=== PATIENT | female | born 1955 | race American Indian/Alaskan Native ===

== ENCOUNTER 2017-09-23 14:00 | Outpatient (CLI) | payer MEDICARE, BC ==
--- NOTE | 2017-09-23 16:23 | Mammography Report ---
BONE DEXA:09/23/17 13:15:00 CLINICAL: Postmenopausal. No comparison. TECHNIQUE: Three site bone DEXA performed on an Hologic scanner. FINDINGS: The average BMD of the lumbar spine L1-L3 is 1.027g/cm squared with a T-score of +0.1 and a Z-score of +0.8. The L4 body was excluded since she has had an L4-S1 lumbar fusion with metal at those levels. The average BMD of the right hip is 0.910g/cm squared with a T-score of -0.3 and a Z-score of +0.1. However, the right femoral neck BMD is 0.691g/cm squared with a T score of -1.4 and a Z score of -0.7. The average BMD of the left forearm is 0.589g/cm squared with a T score of +0.5 and a Z score of +1.9. IMPRESSION: 1. WHO classification: Normal with average fracture risk based on lumbar spine and left forearm measurements. 2. WHO classification: Osteopenia with increased fracture risk based on right femoral neck measurements. 3. The FRAX 10 year fracture probability for a major osteoporotic fracture is 3.5%. 4. The FRAX 10 year fracture probability for hip fracture is 0.3%. Note: FRAX version 3.01. Fracture probability calculated for an untreated patient. Fracture probability may be lower if the patient has received treatment. RECOMMENDATION: Clinical correlation and routine screening. DEFINITIONS: BMD = Bone Mineral Density T-score = BMD related to mean peak bone mass of young adult (mean expressed in Standard Deviation) Z-score = Age matched BMD expressed in SD World Health Organization (WHO) Diagnostic Criteria Normal T-score > -1 SD Osteopenia T-score between -1 and -2.4 SD Osteoporosis T-score -2.5 SD or below NOTE: BMD is not the only risk factor for fracture; also consider factors such as the patient's age, risk of falling, previous osteoporotic fracture, family history of osteoporotic fractures, current smoker, and low body weight. All treatment decisions require clinical judgment and consideration of individual patient factors, including patient preferences, comorbidities, previous drug use and risk factors not captured in the FRAX model (e.g. frailty, falls, vitamin D deficiency, increased bone turnover, interval significant decline in BMD). Fracture probability is calculated for an untreated patient. Fracture probability may be lower if the patient has received treatment. Z-scores are not calculated if >80 years of age.
== END 2017-09-23 14:01 | disposition home or self-care (01) ==
LOC: MAMMO 14:00
PROVIDERS: ATTEND Obstetrics & Gynecology Gynecology
DX: M85.88 Other specified disorders of bone density and structure, other site (principal); Z78.0 Asymptomatic menopausal state
CPT/HCPCS: 77080

== ENCOUNTER 2019-01-02 23:24 | Observation (INO) | payer MEDICARE ==
[2019-01-02] MEDS ORDERED: ASPIRIN PO ONE (23:50)
--- NOTE | 2019-01-03 00:29 | XRay Report ---
PROCEDURE: XR CHEST 1V AP TECHNIQUE: AP upright view of the chest was obtained. HISTORY: Chest Pain COMPARISONS: None FINDINGS: Heart size and pulmonary vasculature appear normal. Lungs are clear. No infiltrates masses effusions or pneumothorax visualized. No acute bone abnormalities are seen. IMPRESSION: Negative exam.. This document is electronically signed by Gordon Robles MD., January 03 2019 12:27:09 AM ET
[2019-01-03 00:46] LABS: BUN/Creatinine Ratio 18; Blood Urea Nitrogen 14 mg/dL (7-17); Calcium 9.6 mg/dL (8.4-10.2); Hemolysis Index 7
[2019-01-03 00:52] LABS: Basophils # (Auto) 0.1 K/mm3 (0.0-0.1); Eosinophils # (Auto) 0.2 K/mm3 (0.0-0.4); Eosinophils % (Auto) 5.1 % (0.0-4.3); Hemoglobin 11.2 gm/dl (10.1-14.3); Lymphocytes # (Auto) 2.1 K/mm3 (1.2-5.4); Lymphocytes % (Auto) 46.7 % (13.4-35.0); Mean Corpuscular HGB Conc 34 % (30-34); Mean Corpuscular Volume 89 fl (79-97); Monocytes # (Auto) 0.3 K/mm3 (0.0-0.8); Monocytes % (Auto) 6.2 % (0.0-7.3); Platelet Count 298 K/mm3 (140-440); Red Blood Count 3.73 M/mm3 (3.65-5.03); Red Cell Distribution Width 14.1 % (13.2-15.2)
[2019-01-03] MEDS ORDERED: K-DUR PO ONE (01:47)
[2019-01-03] MEDS ORDERED: ANTIVERT PO ONE (02:04)
[2019-01-03] MEDS ORDERED: NACL 0.9% 500 ML 500 ML IV ONE (02:04)
--- NOTE | 2019-01-03 02:05 | Emergency Department Report ---
ED Neuro Deficit HPI - General Chief Complaint: High BP Stated Complaint: BLOOD PRESSURE AND SHAKING Time Seen by Provider: 01/03/19 01:46 Source: patient, RN notes reviewed Mode of arrival: Wheelchair Limitations: No Limitations - History of Present Illness Initial Comments: Primary care Dr.: Dr. Jeremie Aragon Past medical history: Allergies, hypertension This is a 63-year-old female. The patient is not known to this provider previously. The patient presents to the emergency room with a complaint of sensation of elevated blood pressure, dizziness, nontraumatic thoracic back pain, intermittent bilateral lower extremity weakness, now resolved, no bladder or bowel retention or incontinence, no saddle anesthesia, no DVT or pulmonary embolus risk factors, and sensation of movement, which she describes as occasionally a sensation of her being moved, and occasionally a sensation of movement around her. The symptoms have been intermittent since approximately 5:30 PM yesterday. The patient denies tinnitus, denies change in auditory acuity, and also denies change in vision. She denies viral syndrome. She endorsed a throbbing burning achy and squeezing headache. This is bitemporal and frontal. It is not sudden in a thunderclap nature. It did not reach maximal intensity within an hour. The back pain is mid thoracic, it is achy, throbbing, and similar to prior back pain, although she reports it is in a different location than typically. This pain does not radiate anywhere. -: Gradual Location: other Presenting Symptoms: Absent: Weak/Paralyzed One Side, Sudden, Severe Headache, Blurred/Loss of Vision, Facial Droop/Numbness, Unable to Speak Clearly, Altered Mental Status History of same: No Place: home Severity: moderate Quality: other Improves With: other Worsens With: other - Related Data Home Medications: Home Medications Medication Instructions Recorded Confirmed Last Taken Loratadine 10 mg PO DAILY 01/03/19 01/03/19 01/02/19 Montelukast [Singulair] 10 mg PO QPM 01/03/19 01/03/19 01/02/19 Nebivolol HCl [Bystolic] 5 mg PO DAILY 01/03/19 01/03/19 01/02/19 hydroCHLOROthiazide [Hctz] 12.5 mg PO QDAY 01/03/19 01/03/19 01/02/19 Allergies/Adverse Reactions: Allergies Allergy/AdvReac Type Severity Reaction Status Date / Time codeine AdvReac Shortness Verified 01/02/19 23:31 of Breath ED Review of Systems ROS: Stated complaint: BLOOD PRESSURE AND SHAKING Other details as noted in HPI Constitutional: malaise Eyes: denies: eye discharge ENT: denies: epistaxis Respiratory: denies: cough Cardiovascular: denies: chest pain Gastrointestinal: denies: abdominal pain Genitourinary: denies: dysuria Musculoskeletal: back pain Skin: denies: lesions Neurological: headache, weakness Psychiatric: anxiety ED Past Medical Hx - Past Medical History Previous Medical History?: Yes Hx Hypertension: Yes Hx Arthritis: Yes - Surgical History Past Surgical History?: Yes Hx Pacemaker: Yes Additional Surgical History: Left hip, Back and Neck Surgery - Social History Smoking Status: Former Smoker Substance Use Type: None - Medications Home Medications: Home Medications Medication Instructions Recorded Confirmed Last Taken Type Loratadine 10 mg PO DAILY 01/03/19 01/03/19 01/02/19 History Montelukast [Singulair] 10 mg PO QPM 01/03/19 01/03/19 01/02/19 History Nebivolol HCl [Bystolic] 5 mg PO DAILY 01/03/19 01/03/19 01/02/19 History hydroCHLOROthiazide [Hctz] 12.5 mg PO QDAY 01/03/19 01/03/19 01/02/19 History ED Neuro Physical Exam - General Limitations: No Limitations General appearance: alert, anxious Suspected Stroke: No - Head Head exam: Present: atraumatic, normocephalic - Eye Eye exam: Present: normal appearance, PERRL, EOMI, other (visual acuity intact to finger counting, color perception, reading at a close distance). Absent: nystagmus - ENT ENT exam: Present: normal exam, mucous membranes dry, mucous membranes moist, TM's normal bilaterally, normal external ear exam, other (there is no mastoid tenderness) - Neck Neck exam: Present: normal inspection, full ROM. Absent: tenderness, meningismus - Respiratory Respiratory exam: Present: normal lung sounds bilaterally. Absent: respiratory distress - Cardiovascular Cardiovascular Exam: Present: regular rate, normal rhythm, normal heart sounds. Absent: bradycardia, tachycardia, irregular rhythm, systolic murmur, diastolic murmur, rubs, gallop - GI/Abdominal GI/Abdominal exam: Present: soft. Absent: distended, tenderness, guarding, rebound, rigid, pulsatile mass - Extremities Exam Extremities exam: Present: normal inspection, full ROM, pedal edema, other (2+ pulses noted in the bilateral upper, lower extremities. Compartments soft. No long bony tenderness. The pelvis is stable.). Absent: calf tenderness - Back Exam Back exam: Present: normal inspection, full ROM. Absent: tenderness, CVA tenderness (R), paraspinal tenderness, vertebral tenderness - Neurological Exam Neurological exam: Present: alert, oriented X3, normal gait, other (Extraocular movements intact. Tongue midline. No facial droop. Facial sensation intact to light touch in the V1, V2, V3 distribution bilaterally. 5 and 5 strength in 4 extremities.. Sensation is intact to light touch in 4 extremities.). Absent: motor sensory deficit (bilateral upper extremity intention tremor is noted. The patient reports that this is new.) - NIHSS Assessment Interval: Baseline 1a. Level of Consciousness: alert/keenly responsive 1b. LOC Questions: answers both correctly 1c. LOC Commands: performs tasks correctly 2. Best Gaze: normal 3. Visual: no visual loss 4. Facial Palsy: normal symmetrical movement 5b. Motor Arm Right: no drift 5a. Motor Arm Left: no drift 6a. Motor Leg Left: no drift 6b. Motor Leg Right: no drift 7. Limb Ataxia: present 2 limbs (bilateral upper extremity tremor noted, has difficulty touching finger to nose.) 8. Sensory: normal 9. Best Language: no aphasia 10. Dysarthria: normal 11. Extinction/Inattention: no abnormality Total Score: 2 Stroke Severity: Minor Stroke - Psychiatric Psychiatric exam: Present: anxious - Skin Skin exam: Present: warm, dry, intact, normal color. Absent: rash ED Course Vital Signs 01/02/19 01/03/19 01/03/19 23:30 00:48 04:11 Temperature 98.2 F Pulse Rate 95 H 77 60 Respiratory 18 17 19 Rate Blood Pressure 192/101 Blood Pressure 151/92 148/82 [Right] O2 Sat by Pulse 99 98 98 Oximetry - Reevaluation(s) Reevaluation #1: 01/03/19 02:47 Differential diagnosis, including but not limited to: Hypertensive urgency, posterior reversible encephalopathy, peripheral vertigo, central vertigo, stroke, TIA, pneumonia, urinary tract infection, acute coronary syndrome, electrolyte derangement, Assessment and plan: 63-year-old female with numerous nonspecific complaints. Objectively speaking, the patient is afebrile with reassuring vital signs with the exception of hypertension. Presents more than 4.5 hours after reported symptom onset, is therefore not a TPA candidate, in addition, only findings on neurologic examination included bilateral upper extremity tremors, which she rep orts are new, and may be contributing to mild degree of limb ataxia. She walks with a steady gait. She is not tachycardic, she is not hypoxic. Elevated blood pressure is reviewed and appreciated, we will allow for permissive hypertension at this point time. We will treat her symptoms. Stroke neurology consultation is obtained, patient interviewed with myself by Dr. Sam Fishman, who agrees the patient does not merit tPA criteria, but advises acquisition of angiogram to exclude large vessel occlusion; we both clinically feel that large vessel occlusion is quite unlikely. We'll treat the patient with meclizine and IV fluids, obtain CT scans, and admitted to the medical service once initial diagnostics have been resulted 01/03/19 02:47 01/03/19 02:49 01/03/19 04:[address] angiogram of the head and neck is negative for acute disease. The case is presented to the Hospital physician, Dr. Suzie Hoyos, who accepts the patient to the medical service for further evaluation - Lab Data Result diagrams: 01/03/19 00:05 01/03/19 00:05 Lab Results 01/03/19 01/03/19 01/03/19 Range/Units 00:05 00:05 00:05 WBC 4.6 (4.5-11.0) K/mm3 RBC 3.73 (3.65-5.03) M/mm3 Hgb 11.2 (10.1-14.3) gm/dl Hct 33.0 (30.3-42.9) % MCV 89 (79-97) fl MCH 30 (28-32) pg MCHC 34 (30-34) % RDW 14.1 (13.2-15.2) % Plt Count 298 (140-440) K/mm3 Lymph % (Auto) 46.7 H (13.4-35.0) % Candler % (Auto) 6.2 (0.0-7.3) % Eos % (Auto) 5.1 H (0.0-4.3) % Baso % (Auto) Staff Training And Development Manager Lymph # 2.1 (1.2-5.4) K/mm3 Candler # 0.3 (0.0-0.8) K/mm3 Eos # 0.2 (0.0-0.4) K/mm3 Baso # 0.1 (0.0-0.1) K/mm3 Seg Neutrophils % 40.4 (40.0-70.0) % Seg Neutrophils # 1.8 (1.8-7.7) K/mm3 Sodium 139 (137-145) mmol/L Potassium 3.3 L (3.6-5.0) mmol/L Chloride 99.6 (98-107) mmol/L Carbon Dioxide 25 (22-30) mmol/L Anion Gap 18 mmol/L BUN 14 (7-17) mg/dL Creatinine 0.8 (0.7-1.2) mg/dL Estimated GFR > 60 ml/min BUN/Creatinine Ratio 18 % Glucose 109 H (65-100) mg/dL Calcium 9.6 (8.4-10.2) mg/dL Magnesium 1.90 (1.7-2.3) mg/dL Total Creatine Kinase 144 H (30-135) units/L Troponin T < 0.010 (0.00-0.029) ng/mL 01/03/19 Range/Units 03:03 WBC (4.5-11.0) K/mm3 RBC (3.65-5.03) M/mm3 Hgb (10.1-14.3) gm/dl Hct (30.3-42.9) % MCV (79-97) fl MCH (28-32) pg MCHC (30-34) % RDW (13.2-15.2) % Plt Count (140-440) K/mm3 Lymph % (Auto) (13.4-35.0) % Cand[place] % (Auto) (0.0-7.3) % Eos % (Auto) (0.0-4.3) % Baso % (Auto) Lymph # (1.2-5.4) K/mm3 Candler # (0.0-0.8) K/mm3 Eos # (0.0-0.4) K/mm3 Baso # (0.0-0.1) K/mm3 Seg Neutrophils % (40.0-70.0) % Seg Neutrophils # (1.8-7.7) K/mm3 Sodium (137-145) mmol/L Potassium (3.6-5.0) mmol/L Chloride (98-107) mmol/L Carbon Dioxide (22-30) mmol/L Anion Gap mmol/L BUN (7-17) mg/dL Creatinine (0.7-1.2) mg/dL Estimated GFR ml/min BUN/Creatinine Ratio % Glucose (65-100) mg/dL Calcium (8.4-10.2) mg/dL Magnesium (1.7-2.3) mg/dL Total Creatine Kinase (30-135) units/L Troponin T < 0.010 (0.00-0.029) ng/mL - EKG Data -: EKG Interpreted by Me EKG shows normal: sinus rhythm Rate: normal 01/03/19 02:49 This is a normal sinus rhythm, 75 bpm, left axis deviation, left anterior fascicular block, motion artifact, , low voltage, this is an abnormal EKG, this is not consistent with ST elevation myocardial infarction. - Radiology Data Radiology results: pending - Core Measures Measure Exclusions: not indicated - Thrombolytic Inclusion/Exclusion Thrombolytic Exclusion Criteria: Symptom Onset > 3 Hours Critical care attestation.: If time is entered above; I have spent that time in minutes in the direct care of this critically ill patient, excluding procedure time. ED Disposition Clinical Impression: Dizziness, Elevated blood pressure reading Disposition: OP ADMIT IP TO THIS HOSP Is pt being admited?: Yes Does the pt Need Aspirin: Yes Condition: Good Referrals: PRIMARY CARE, [Primary Care Provider] - 3-5 Days
--- NOTE | 2019-01-03 03:54 | Cat Scan Report ---
PROCEDURE: CT ANGIO HEAD TECHNIQUE: Computerized tomographic angiography of the head was performed after the IV injection of iodinated nonionic contrast including image processing. The image data was postprocessed using 2-dim ensional multiplanar reformatted (MPR) and 3-dimensional (MIP and/or volume rendered) techniques. CT DOSE LENGTH PRODUCT: mGycm HISTORY: balance off temor cva COMPARISONS: None . FINDINGS: Cerebrum: No evidence of hemorrhage, acute ischemia or mass . Cerebellum: No evidence of hemorrhage, acute ischemia or mass . Subarachnoid spaces and ventricles: Normal . Intracranial vessels: Carotid siphon: Normal . Anterior cerebral: Normal . Middle cerebral: Normal . Posterior cerebral: Normal . Vertebral arteries including basilar: Normal . Aneurysms: None . Dural sinuses: Normal. IMPRESSION: Normal Examination . This document is electronically signed by Cam Gaspar MD., January 03 2019 03:52:07 AM ET
--- NOTE | 2019-01-03 03:56 | Cat Scan Report ---
PROCEDURE: CT ANGIO NECK TECHNIQUE: Computerized tomographic angiography of the neck was performed after the IV injection of iodinated nonionic contrast including image processing. The image data was postprocessed using 2-dime nsional multiplanar reformatted (MPR) and 3-dimensional (MIP and/or volume rendered) techniques. CT DOSE LENGTH PRODUCT: 2092.5 mGycm HISTORY: balance off temor cva COMPARISONS: None . Note: Assessment of carotid artery stenosis is based on measurement of the distal internal carotid a rtery diameter as the denominator for stenosis calculations and the [place] Symptomatic Caroti d Endarterectomy Trial (NASCET) stenosis criteria. FINDINGS: Sinuses: Normal . Non vascular cervical structures: No significant abnormality . Aortic arch: Normal . Right carotid artery: Normal . Left carotid artery: Normal . Vertebral arteries: Normal . IMPRESSION: Normal Examination . This document is electronically signed by Cam Gaspar MD., January 03 2019 03:54:32 AM ET
--- NOTE | 2019-01-03 03:59 | Cat Scan Report ---
PROCEDURE: CT HEAD/BRAIN WO CON TECHNIQUE: Computerized tomography of the head was performed without contrast material. CT DOSE LENGTH PRODUCT: 915.1 mGycm HISTORY: balance off temor cva COMPARISONS: None . FINDINGS: Skull and scalp: Normal . Paranasal sinuses: Normal . Ventricles and subarachnoid spaces: Normal . Cerebrum: No evidence of hemorrhage, acute infarction or mass . Cerebellum and brainstem: No evidence of hemorrhage, acute infarction or mass . Vasculature: Normal . IMPRESSION: Normal Examination . This document is electronically signed by Cam Gaspar MD., January 03 2019 03:57:26 AM ET
--- NOTE | 2019-01-03 04:28 | Emergency Department Report ---
ED Neuro Deficit HPI - General Chief Complaint: High BP Stated Complaint: BLOOD PRESSURE AND SHAKING Time Seen by Provider: 01/03/19 01:46 Source: patient, RN notes reviewed Mode of arrival: Wheelchair Limitations: No Limitations - History of Present Illness Initial Comments: [facility] Impression: R/O bilateral MICHAEL stroke for lower extremity weakness Recommendations: #1. No TPA because last known normal was the night before. #2. Both legs are weak obtain CTA H/N #3. If No LVO, will admit for IV fluids, Telemetry, Swallow Study, DVT prophy #4. Ok to give ASA #5. Consider EEG if negative #6. Will follow CC: History of Present Illness: The patient started to have new onset of hand shaking, she started to have this start today at 4-5:30 pm, At 4to 5:30 pm,the patient drove home, and she was sha michael with blood pressure that went up at 4:00 - 5:30 pm, and got up to go to the bathroomand was dizzy and started to shake and had pain in the back. She statesthat she had a dizzy sensation, and new onset bilateral upper location of pain. SHe has a headache, and Diagnostic Testing: CT head is negative. Vital Signs: Exam: Mental Status: Awake, alert, oriented Naming: Intact Repetition: Intact Speech: fluent Cranial Nerves: Pupils: Equal round and reactive to light Extraocular movements: Intact in all cardinal gaze Ptosis: Absent Visual roach: Intact to finger counting Facial sensation: Intact to pin and light touch Facial movements: Intact and symmetric Motor Exam: No drift Tremor/Abnormal Movements: Resting tremor: Absent Intention tremor: Absent Postural tremor: Absent Sensory Exam: Light touch: Intact Pinprick: Intact Coordination: Finger to nose: Intact Heel to jaime: Intact Medical Decision Making: - Extensive number of diagnosis or management options are considered above. - Extensive amount of complex data reviewed. - High risk of complication and/or morbidity or mortality are associated with differential diagnostic considerations above. - There may be uncertain outcome and increased probability of prolonged functional impairment or high probability of severe prolonged functional impairment associated with some of these differential diagnosis. Medical Data Reviewed: 1.Data reviewed include clinical labs, radiology, Medical Tests; 2.Tests r esults discussed w/performing or interpreting physician; 3.Obtaining/reviewing old medical records; 4.Obtaining case history from another source; 5.Independent review of image, tracing or specimen. Patient was informed the Neurology Consult would happen via telehealth (remote video) and consented to receiving care in this manner. Location: other History of same: No Place: home Severity: moderate Quality: other Improves With: other Worsens With: other - Related Data Home Medications: Home Medications Medication Instructions Recorded Confirmed Last Taken Loratadine 10 mg PO DAILY 01/03/19 01/03/19 01/02/19 Montelukast [Singulair] 10 mg PO QPM 01/03/19 01/03/19 01/02/19 Nebivolol HCl [Bystolic] 5 mg PO DAILY 01/03/19 01/03/19 01/02/19 hydroCHLOROthiazide [Hctz] 12.5 mg PO QDAY 01/03/19 01/03/19 01/02/19 Allergies/Adverse Reactions: Allergies Allergy/AdvReac Type Severity Reaction Status Date / Time codeine AdvReac Shortness Verified 01/02/19 23:31 of Breath ED Review of Systems ROS: Stated complaint: BLOOD PRESSURE AND SHAKING Other details as noted in HPI Constitutional: malaise Eyes: denies: eye discharge ENT: denies: epistaxis Respiratory: denies: cough Cardiovascular: denies: chest pain Gastrointestinal: denies: abdominal pain Genitourinary: denies: dysuria Musculoskeletal: back pain Skin: denies: lesions Neurological: headache, weakness Psychiatric: anxiety ED Past Medical Hx - Past Medical History Previous Medical History?: Yes Hx Hypertension: Yes Hx Arthritis: Yes - Surgical History Past Surgical History?: Yes Hx Pacemaker: Yes Additional Surgical History: Left hip, Back and Neck Surgery - Social History Smoking Status: Former Smoker Substance Use Type: None - Medications Home Medications: Home Medications Medication Instructions Recorded Confirmed Last Taken Type Loratadine 10 mg PO DAILY 01/03/19 01/03/19 01/02/19 History Montelukast [Singulair] 10 mg PO QPM 01/03/19 01/03/19 01/02/19 History Nebivolol HCl [Bystolic] 5 mg PO DAILY 01/03/19 01/03/19 01/02/19 History hydroCHLOROthiazide [Hctz] 12.5 mg PO QDAY 01/03/19 01/03/19 01/02/19 History ED Neuro Physical Exam - General Limitations: No Limitations General appearance: alert, anxious ED Course Vital Signs 01/02/19 01/03/19 01/03/19 23:30 00:48 04:11 Temperature 98.2 F Pulse Rate 95 H 77 60 Respiratory 18 17 19 Rate Blood Pressure 192/101 Blood Pressure 151/92 148/82 [Right] O2 Sat by Pulse 99 98 98 Oximetry - Lab Data Result diagrams: 01/03/19 00:05 01/03/19 00:05 Lab Results 01/03/19 01/03/19 01/03/19 Range/Units 00:05 00:05 00:05 WBC 4.6 (4.5-11.0) K/mm3 RBC 3.73 (3.65-5.03) M/mm3 Hgb 11.2 (10.1-14.3) gm/dl Hct 33.0 (30.3-42.9) % MCV 89 (79-97) fl MCH 30 (28-32) pg MCHC 34 (30-34) % RDW 14.1 (13.2-15.2) % Plt Count 298 (140-440) K/mm3 Lymph % (Auto) 46.7 H (13.4-35.0) % Kem[place] % (Auto) 6.2 (0.0-7.3) % Eos % (Auto) 5.1 H (0.0-4.3) % Baso % (Auto) Item Processing Clerk Lymph # 2.1 (1.2-5.4) K/mm3 Kem[place] # 0.3 (0.0-0.8) K/mm3 Eos # 0.2 (0.0-0.4) K/mm3 Baso # 0.1 (0.0-0.1) K/mm3 Seg Neutrophils % 40.4 (40.0-70.0) % Seg Neutrophils # 1.8 (1.8-7.7) K/mm3 Sodium 139 (137-145) mmol/L Potassium 3.3 L (3.6-5.0) mmol/L Chloride 99.6 (98-107) mmol/L Carbon Dioxide 25 (22-30) mmol/L Anion Gap 18 mmol/L BUN 14 (7-17) mg/dL Creatinine 0.8 (0.7-1.2) mg/dL Estimated GFR > 60 ml/min BUN/Creatinine Ratio 18 % Glucose 109 H (65-100) mg/dL Calcium 9.6 (8.4-10.2) mg/dL Magnesium 1.90 (1.7-2.3) mg/dL Total Creatine Kinase 144 H (30-135) units/L Troponin T < 0.010 (0.00-0.029) ng/mL 01/03/19 Range/Units 03:03 WBC (4.5-11.0) K/mm3 RBC (3.65-5.03) M/mm3 Hgb (10.1-14.3) gm/dl Hct (30.3-42.9) % MCV (79-97) fl MCH (28-32) pg MCHC (30-34) % RDW (13.2-15.2) % Plt Count (140-440) K/mm3 Lymph % (Auto) (13.4-35.0) % Kem[place] % (Auto) (0.0-7.3) % Eos % (Auto) (0.0-4.3) % Baso % (Auto) Lymph # (1.2-5.4) K/mm3 Kem[place] # (0.0-0.8) K/mm3 Eos # (0.0-0.4) K/mm3 Baso # (0.0-0.1) K/mm3 Seg Neutrophils % (40.0-70.0) % Seg Neutrophils # (1.8-7.7) K/mm3 Sodium (137-145) mmol/L Potassium (3.6-5.0) mmol/L Chloride (98-107) mmol/L Carbon Dioxide (22-30) mmol/L Anion Gap mmol/L BUN (7-17) mg/dL Creatinine (0.7-1.2) mg/dL Estimated GFR ml/min BUN/Creatinine Ratio % Glucose (65-100) mg/dL Calcium (8.4-10.2) mg/dL Magnesium (1.7-2.3) mg/dL Total Creatine Kinase (30-135) units/L Troponin T < 0.010 (0.00-0.029) ng/mL Critical care attestation.: If time is entered above; I have spent that time in minutes in the direct care of this critically ill patient, excluding procedure time. ED Disposition Condition: Stable Referrals: PRIMARY CARE, [Primary Care Provider] - 3-5 Days
[2019-01-03] MEDS ORDERED: BABY ASPIRIN PO ONE (04:49)
[2019-01-03] MEDS ORDERED: ZOFRAN IV PRN (05:11)
[2019-01-03] MEDS ORDERED: TYLENOL PO PRN (05:12)
[2019-01-03] MEDS ORDERED: ANTIVERT PO PRN (05:22)
[2019-01-03 07:48] LABS: BUN/Creatinine Ratio 16; Blood Urea Nitrogen 11 mg/dL (7-17); Calcium 9.8 mg/dL (8.4-10.2); Hemolysis Index 10
--- NOTE | 2019-01-03 08:24 | Magnetic Resonance Report ---
MRI OF THE BRAIN WITHOUT CONTRAST: HISTORY: Ataxia, dizziness PROCEDURE: Multiplanar, multisequence MR imaging of the brain without IV contrast was performed. Comparison: CT head without contrast, CTA head and neck performed 01/03/19. FINDINGS: The brain parenchyma signal intensity and its mcbride white interface are within normal limits on all sequences. No evidence for acute ischemia, hemorrhage or mass. No chronic infarct or extra-axial fluid collection. The midline structures are central. The basal cisterns are patent. Normal ventricular size. The orbital cavities and sella turcica demonstrate no abnormality. The visualized paranasal sinuses and mastoid air cells are well aerated. IMPRESSION: Unremarkable non-enhanced MRI of the brain.
--- NOTE | 2019-01-03 08:30 | History and Physical Report ---
CHIEF COMPLAINT: Elevated blood pressure. OTHER COMPLAINT: Include dizziness and unsteady gait. HISTORY OF PRESENTING ILLNESS: The patient is a 63-year-old female, who presented to the Emergency Room with complaint of dizziness, elevated blood pressure, back pain, unsteady gait. The patient denied history of chest pain. Denied history of shortness of breath, also complained about headache and tremors. The patient denied history of tinnitus and admitted to having body tremor. There is no history of weakness of the extremities. The patient denies history of fever or chills and presented for evaluation. PAST MEDICAL HISTORY: Pertinent for hypertension, arthritis. PAST SURGICAL HISTORY: Pertinent for pacemaker placement, left hip surgery, back and neck surgery. FAMILY HISTORY: Family history is noncontributory. SOCIAL HISTORY: The patient is a former cigarette smoker, does not smoke currently, does not drink alcohol and does not use illicit drug. MEDICATIONS: The patient is on loratadine 10 mg by mouth daily, montelukast 10 mg by mouth daily. Also the patient is on Bystolic (nebivolol hydrochloride) 5 mg by mouth daily. The patient is also on hydrochlorothiazide 12.5 mg daily. ALLERGIES: THE PATIENT IS ALLERGIC TO CODEINE. REVIEW OF SYSTEMS: CONSTITUTIONAL: There are no fever, no chills, no diaphoresis. HEENT: There is headache, but no sore throat. CARDIOVASCULAR SYSTEM: There is no chest pain or orthopnea. RESPIRATORY SYSTEM: There is no shortness of breath or cough. GASTROINTESTINAL SYSTEM: There is no nausea, no vomiting, no abdominal pain, diarrhea or constipation. NEUROLOGICAL SYSTEM: Dizziness present. Unsteady gait present. Tremors present. There is no change in mental status. There is no weakness of any part of body. Also there is no loss of sensory function. MUSCULOSKELETAL SYSTEM: There is no joint pain or swelling. DERMATOLOGICAL SYSTEM: There is no skin rash or itching. GENITOURINARY SYSTEM: There is no dysuria, hematuria or flank pain. Rest of system review is normal. PHYSICAL EXAMINATION: GENERAL: At the time of exam, the patient was found to be alert, oriented x 3 and not in acute distress. VITAL SIGNS: At the initial time of presentation show temperature of 98.2 degrees Fahrenheit, pulse of 95, respiration 18. Blood pressure 192/101, blood pressure further went down to 148/82 after about 5 hours. O2 sat of 99% on room air. HEENT: Showed pupils to be equal, round, reactive to light and accommodating. Extraocular muscles are intact. NECK: Neck is supple with no JVD or carotid bruit. CARDIOVASCULAR SYSTEM: Show normal first and second heart sounds with no gallops or murmurs. RESPIRATORY SYSTEM: Show good air entry on both sides of the lungs with no abnormal breath sounds. GASTROINTESTINAL SYSTEM: Show abdomen to be full, soft, nontender with no organomegaly or rigidity. NEUROLOGIC: Neuro exam shows no focal deficit. MUSCULOSKELETAL SYSTEM: Show no joint swelling or tenderness. DERMATOLOGICAL SYSTEM: Showing no skin rash. GENITOURINARY SYSTEM: Showing no costovertebral angle tenderness. PERTINENT LABORATORY DATA AND IMAGING STUDIES: The patient had the following lab test done. CBC showed normal white count, normal hemoglobin and normal hematocrit with CBC differential showing elevated lymphocyte count of 46.7% and elevated eosinophil count of 5.1%. The patient's chemistry showed low potassium level of 3.3 with rest of chemistry being unremarkable. Imaging studies; the patient has had chest x-ray done that came back unremarkable. The patient had a CT of the head without contrast done, came back normal. Also the patient had CT angiogram of the head and CT angiogram of the neck that all came back normal. DIAGNOSES: 1. Unsteady gait. 2. Dizziness. 3. Hypokalemia. PLAN OF CARE: 1. The patient will be admitted to telemetry. 2. The patient will have MRI of the brain without contrast done this morning. 3. The patient will have bilateral carotid Doppler done this morning as well as 2D echo done this morning. 4. The patient will have Neurology consult with Dr. Burak Herzog and will also have physical therapy consult this morning. 5. The patient will be on aspirin 325 mg by mouth daily and will be on IV Zofran 4 mg every 8 hours as needed for nausea and vomiting. 6. The patient will be on home medications as shown in the medication reconciliation section. 7. The patient will be on meclizine 25 mg by mouth every 8 hours as needed for vertigo. 8. She will be on Tylenol 650 mg by mouth every 4 hours for fever, headache and daily aspirin 325 mg by mouth. 9. The patient will have basic metabolic panel done this morning having potassium chloride by mouth with a dose of 40 mEq. 10. The patient's diet will be 2 g sodium diet. [facility]# [id number] [facility]/SADIE ALLEN
[2019-01-03] MEDS ORDERED: ASPIRIN ONE (09:42)
[2019-01-03] MEDS ORDERED: LOPRESSOR ONE (09:43)
[2019-01-03] MEDS ORDERED: HCTZ ONE (09:43)
[2019-01-03] MEDS ORDERED: CLARITIN ONE (09:44)
[2019-01-03 09:54] VITALS: BP 134/85
[2019-01-03] MEDS ORDERED: NEBIVOLOL HCL 5 MG PO SCH (10:00)
[2019-01-03] MEDS ORDERED: ASPIRIN PO SCH (10:00)
[2019-01-03] MEDS ORDERED: TOPROL XL PO SCH (10:00)
[2019-01-03] MEDS ORDERED: CLARITIN PO SCH (10:00)
[2019-01-03] MEDS ORDERED: HCTZ PO SCH (10:00)
--- NOTE | 2019-01-03 10:10 | Discharge Summary ---
Providers - Providers Date of Admission: 01/03/19 05:00 Date of discharge: 01/03/19 Attending physician: REBECA NELSON MD 01/03/19 02:04 Consult to Physician [CONS] Urgent Comment: Consulting Provider: GARIMA GOODMAN Physician Instructions: Reason For Exam: balance augustien 01/03/19 05:09 Consult to Physician [CONS] Routine Comment: Consulting Provider: TUSHAR BELL Physician Instructions: Reason For Exam: ATAXIA AND DIZZYNESS 01/03/19 05:11 Physical Therapy Evaluation and Treat [CONS] Routine Comment: Reason For Exam: ATAXIA Primary care physician: [employer]LY[employer] Hospitalization Reason for admission: hypertension and dizziness Hospital course: 68-year-old -[place] female with known history of hypertension and arthritis presented to the ED with complaints of dizziness, elevated blood pressure, back pain, unsteady gait. At the time of admission patient blood pressure was 192/101. She was treated with by mouth metoprolol 50 mg daily HCTZ 12.5mg daily. Her blood pressure returned to normal limits 123/80. As patient's blood pressure improved her gait is steady and she no longer complains of dizziness.She was found to be hypokalemic with potassium of 3.3. Her potassium was orally repleted and rechecked and it is now 4.4. Since MRI brain, CT angiogram, and carotid Doppler are all negative patient is being discharged home with adjustment in antihypertensive medications. Discharge planning was discussed with both patient and her daughter. They are both in agreement and verbalized understanding. Following diagnostic studies were done: MRI brain: Unremarkable non-enhanced MRI of the brain CTA and CT head both reveal: Normal Examination Bilateral carotid Doppler unrevealing for evidence of any hemodynamically significant stenosis EKG showed sinus rhythm at 75 bpm, left ventricular hypertrophy Diagnosis Hypertensive urgency History of hypertension Hypokalemia Unsteady gait Dizziness Disposition: DC-01 TO HOME OR SELFCARE Time spent for discharge: 33 minutes Core Measure Documentation - Palliative Care Palliative Care/ Comfort Measures: Not Applicable - Core Measures Any of the following diagnoses?: none - VTE Discharge Requirements Deep Vein Thrombosis/Pulmonary Embolism Present on Admission: No Contraindication No Overlap Therapy order at DC: Not Indicated Exam - Constitutional Vitals: Temp Pulse Resp BP Pulse Ox 98.3 F 75 15 134/85 100 01/03/19 07:44 01/03/19 09:53 01/03/19 07:44 01/03/19 09:53 01/03/19 07:44 General appearance: Present: no acute distress, well-nourished - EENT Eyes: Present: PERRL, EOM intact ENT: hearing intact, clear oral mucosa, dentition normal - Neck Neck: Present: supple, normal ROM - Respiratory Respiratory effort: normal Respiratory: bilateral: CTA - Cardiovascular Heart rate: 75 (bpm) Rhythm: regular Heart Sounds: Present: S1 & S2. Absent: rub, click - Extremities Extremities: pulses intact, pulses symmetrical, No edema - Abdominal General gastrointestinal: Present: soft, non-tender, normal bowel sounds Female genitourinary: Present: deferred - Rectal Rectal Exam: deferred - Integumentary Integumentary: Present: clear, warm, dry - Musculoskeletal Musculoskeletal: strength equal bilaterally - Psychiatric Psychiatric: appropriate mood/affect, intact judgment & insight, cooperative - Neurologic Neurologic: CNII-XII intact, moves all extremities - Allied Health Allied health notes reviewed: nursing Plan Activity: advance as tolerated Diet: low fat, low salt Follow up with: PRIMARY CARE, [Primary Care Provider] - 3-5 Days Forms: Accompanied Note Prescriptions: Aspirin [Aspirin TAB] 325 mg PO QDAY 30 Days #30 tablet Metoprolol Xl [Metoprolol SUCCINATE ER TAB] 50 mg PO QDAY 30 Days #30 tablet
--- NOTE | 2019-01-03 14:22 | Vascular Lab Report ---
PROCEDURE: VL CAROTID DUPLEX BILAT TECHNIQUE: Carotid duplex Doppler ultrasound. Grayscale, color flow and spectral waveform images wer e obtained. HISTORY: ATAXIA AND DIZZYNESS COMPARISON: None FINDINGS: There is a mild to moderate degree of atherosclerotic plaque bilaterally. Bilaterally there is no elevation in flow velocity. ICA/CCA velocity ratios are normal. Findings srinath nicolas stenoses of less than 50%. Vertebral artery flow is antegrade bilaterally. IMPRESSION: No evidence for any hemodynamically significant stenosis. This document is electronically signed by Gayle Enamorado MD., January 03 2019 02:19:57 PM ET
[2019-01-03] MEDS ORDERED: SINGULAIR PO SCH (18:00)
== END 2019-01-03 10:38 | disposition home or self-care (01) ==
LOC: ED 23:24 → 4A 01-03 05:00
PROVIDERS: ADMIT Internal Medicine; ATTEND Internal Medicine
DX: R42 Dizziness and giddiness (principal); R26.81 Unsteadiness on feet; E87.6 Hypokalemia; I10 Essential (primary) hypertension; M19.90 Unspecified osteoarthritis, unspecified site; Z95.0 Presence of cardiac pacemaker; Z98.890 Other specified postprocedural states; Z87.891 Personal history of nicotine dependence; Z88.5 Allergy status to narcotic agent
CPT/HCPCS: 36415; 70450; 70496; 70498; 70551; 71045; 80048; 82550; 83735; 84484; 85025; 93005; 93010; 93880; 99284; G0378; J7040; Q9967

== ENCOUNTER 2019-07-19 06:29 | Observation (INO) | payer MEDICARE ==
--- NOTE | 2019-07-19 06:50 | Emergency Department Report ---
ED Dizziness HPI - General Stated Complaint: DIZZINESS Time Seen by Provider: 07/19/19 06:46 Source: patient, EMS Mode of arrival: Stretcher Limitations: No Limitations - History of Present Illness Initial Comments: Patient is a 63-year-old female that presents emergency room with complaints of near syncope. Patient states she was walking home and became weak and nearly passed out. Patient states she had lightheadedness as well. Patient states her symptoms are better with rest and worse with movement. Patient states she's also has a severe headache. Patient states her headache is a 10 out of 10. Patient states her headache is better with rest and worse with movement. Patient states her blood pressure has been high recently. Patient states she had chest pain yesterday. She states she has a history of tremors for which she is seeing a neurologist for MD Complaint: dizziness, lightheadedness, near syncope -: Sudden Timing: sudden onset Description: lightheadedness, off-balance, difficulty walking, near-syncope History of Same: No History of Trauma: No Severity: severe Improves With: remaining still, rest Worsens With: movement, position, exertion Associated Symptoms: chest pain, weakness - Related Data Home Medications Medication Instructions Recorded Confirmed Last Taken Loratadine 10 mg PO DAILY 01/03/19 01/03/19 01/02/19 Montelukast [Singulair] 10 mg PO QPM 01/03/19 01/03/19 01/02/19 hydroCHLOROthiazide [HCTZ] 12.5 mg PO QDAY 01/03/19 01/03/19 01/02/19 Previous Rx's Medication Instructions Recorded Last Taken Type Aspirin 325 mg PO QDAY 30 Days #30 tablet 01/03/19 Unknown Rx Meclizine [Antivert] 25 mg PO Q8H PRN tablet 01/03/19 Unknown Rx Metoprolol Xl [Metoprolol 50 mg PO QDAY 30 Days #30 tablet 01/03/19 Unknown Rx SUCCINATE ER TAB] Allergies Allergy/AdvReac Type Severity Reaction Status Date / Time codeine AdvReac Shortness Verified 01/02/19 23:31 of Breath ED Review of Systems ROS: Stated complaint: DIZZINESS Other details as noted in HPI Constitutional: weakness. denies: chills, fever Eyes: denies: eye pain, eye discharge, vision change ENT: denies: ear pain, throat pain Respiratory: denies: cough, shortness of breath, wheezing Cardiovascular: chest pain. denies: palpitations Endocrine: no symptoms reported Gastrointestinal: denies: abdominal pain, nausea, diarrhea Genitourinary: denies: urgency, dysuria, discharge Musculoskeletal: denies: back pain, joint swelling, arthralgia Skin: denies: rash, lesions Neurological: headache, weakness. denies: paresthesias Psychiatric: denies: anxiety, depression Hematological/Lymphatic: denies: easy bleeding, easy bruising ED Past Medical Hx - Past Medical History Previous Medical History?: Yes Hx Hypertension: Yes Hx Congestive Heart Failure: No Hx Diabetes: No Hx Arthritis: Yes Hx Asthma: No Hx COPD: No - Surgical History Past Surgical History?: Yes Hx Pacemaker: Yes Additional Surgical History: Left hip, Back and Neck Surgery - Family History Family history: no significant - Social History Smoking Status: Former Smoker Substance Use Type: None - Medications Home Medications: Home Medications Medication Instructions Recorded Confirmed Last Taken Type Aspirin 325 mg PO QDAY 30 Days #30 tablet 01/03/19 Unknown Rx Loratadine 10 mg PO DAILY 01/03/19 01/03/19 01/02/19 History Meclizine [Antivert] 25 mg PO Q8H PRN tablet 01/03/19 Unknown Rx Metoprolol Xl [Metoprolol 50 mg PO QDAY 30 Days #30 tablet 01/03/19 Unknown Rx SUCCINATE ER TAB] Montelukast [Singulair] 10 mg PO QPM 01/03/19 01/03/19 01/02/19 History hydroCHLOROthiazide [HCTZ] 12.5 mg PO QDAY 01/03/19 01/03/19 01/02/19 History ED Physical Exam - General Limitations: No Limitations General appearance: alert, in no apparent distress - Head Head exam: Present: atraumatic, normocephalic - Eye Eye exam: Present: normal appearance, PERRL Pupils: Present: normal accommodation - ENT ENT exam: Present: mucous membranes moist - Neck Neck exam: Present: normal inspection - Respiratory Respiratory exam: Present: normal lung sounds bilaterally. Absent: respiratory distress, wheezes, rales - Cardiovascular Cardiovascular Exam: Present: regular rate, normal rhythm. Absent: systolic murmur, diastolic murmur, rubs, gallop - GI/Abdominal GI/Abdominal exam: Present: soft, normal bowel sounds. Absent: distended, tenderness, guarding - Rectal Rectal exam: Present: deferred - Extremities Exam Extremities exam: Present: normal inspection - Back Exam Back exam: Present: normal inspection - Neurological Exam Neurological exam: Present: alert, oriented X3 - Psychiatric Psychiatric exam: Present: normal affect, normal mood - Skin Skin exam: Present: warm, dry, intact, normal color. Absent: rash ED Course Vital Signs 07/19/19 07/19/19 07/19/19 06:53 06:57 07:00 Temperature 98.7 F Pulse Rate 82 89 Respiratory 12 10 L Rate Blood Pressure 132/79 128/78 Blood Pressure [Left] O2 Sat by Pulse 97 98 97 Oximetry 07/19/19 07/19/19 07/19/19 07:12 07:30 08:00 Temperature 98.6 F Pulse Rate 76 104 H 89 Respiratory 12 12 12 Rate Blood Pressure 149/87 137/77 Blood Pressure 128/78 [Left] O2 Sat by Pulse 98 99 99 Oximetry 07/19/19 07/19/19 07/19/19 08:30 09:00 09:31 Temperature Pulse Rate 84 78 85 Respiratory 10 L 13 Rate Blood Pressure 138/81 127/66 127/66 Blood Pressure [Left] O2 Sat by Pulse 99 99 98 Oximetry 07/19/19 07/19/19 07/19/19 10:00 10:30 11:31 Temperature Pulse Rate 76 67 72 Respiratory 10 L 10 L 10 L Rate Blood Pressure 122/67 127/65 131/87 Blood Pressure [Left] O2 Sat by Pulse 99 100 97 Oximetry - Reevaluation(s) Reevaluation #1: Discussed all results with patient. Discussed plan of care outpatient. Patient will be admitted to the hospital service. Patient agrees with plan of care and admission. 07/19/19 08:24 - Consultations Consultation #1: Hospitalist consult for admission. Hospitalist admit patient. 07/19/19 08:24 ED Medical Decision Making - Lab Data Result diagrams: 07/19/19 07:03 07/19/19 07:03 - EKG Data -: EKG Interpreted by Me EKG shows normal: sinus rhythm, axis, intervals, QRS complexes, ST-T waves Rate: normal - Radiology Data Radiology results: report reviewed, image reviewed interpreted by me: No acute findings on chest x-ray. Head CT negative for acute findings. - Medical Decision Making is a 63-year-old female that presents emergency room with complaints of weakness, near syncope and headache. Patient's initial evaluation is unremarkable. Patient admitted to the hospitalist service for observation and further evaluation and treatment. Patient's head CT negative. Patient's chest x-ray negative. Patient's EKG unremarkable. Patient's labs unremarkable. - Differential Diagnosis syncope, near syncope, dizziness, headache, side effects Critical care attestation.: If time is entered above; I have spent that time in minutes in the direct care of this critically ill patient, excluding procedure time. ED Disposition Clinical Impression: Near syncope, Lightheadedness Headache Qualifiers: Headache type: unspecified Headache chronicity pattern: acute headache Intractability: not intractable Qualified Code(s): R51 - Headache Chest pain Qualifiers: Chest pain type: unspecified Qualified Code(s): R07.9 - Chest pain, unspecified Disposition: DC-09 OP ADMIT IP TO THIS HOSP Is pt being admited?: Yes Does the pt Need Aspirin: No Condition: Serious Time of Disposition: 08:25
[2019-07-19 07:15] LABS: Basophils # (Auto) 0.1 K/mm3 (0.0-0.1); Basophils % (Auto) 1.2 % (0.0-1.8); Eosinophils # (Auto) 0.2 K/mm3 (0.0-0.4); Eosinophils % (Auto) 3.8 % (0.0-4.3); Hematocrit 32.8 % (30.3-42.9); Hemoglobin 10.9 gm/dl (10.1-14.3); Lymphocytes # (Auto) 1.6 K/mm3 (1.2-5.4); Lymphocytes % (Auto) 37.6 % (13.4-35.0); Mean Corpuscular HGB Conc 33 % (30-34); Mean Corpuscular Volume 89 fl (79-97); Monocytes # (Auto) 0.3 K/mm3 (0.0-0.8); Platelet Count 258 K/mm3 (140-440); Red Blood Count 3.71 M/mm3 (3.65-5.03); Red Cell Distribution Width 13.8 % (13.2-15.2)
--- NOTE | 2019-07-19 07:26 | XRay Report ---
CHEST 1 VIEW INDICATION / CLINICAL INFORMATION: near Syncope. COMPARISON: 01/03/2019 FINDINGS: SUPPORT DEVICES: None. HEART / MEDIASTINUM: Borderline enlarged. LUNGS / PLEURA: No significant pulmonary or pleural abnormality. No pneumothorax. ADDITIONAL FINDINGS: No significant additional findings. IMPRESSION: 1. No acute findings. No interval change. Signer Name: Millicent Espinosa MD Signed: 07/19/2019 7:22 AM Workstation Name: [id number]
[2019-07-19 07:32] LABS: Creatine Kinase MB 1.5 ng/mL (0.0-4.0)
[2019-07-19 07:35] LABS: Alanine Aminotransferase 18 units/L (7-56); Albumin 4.1 g/dL (3.9-5); BUN/Creatinine Ratio 17; Blood Urea Nitrogen 12 mg/dL (7-17); Hemolysis Index 0
[2019-07-19] MEDS ORDERED: MECLIZINE 25 MG TAB PO PRN (08:36)
--- NOTE | 2019-07-19 08:46 | History and Physical Report ---
History of Present Illness Date of examination: 07/19/19 Date of admission: 07/19/19 Chief complaint: dizziness, near syncope, and generalized tremor History of present illness: Patient is a 63 year old female with known history of hypertension and arthirtis, recurrence of vertigo, recent diagnosis of neuropathy started on gabapentin recently presents to the ED with complaint of headache with the external ring and to bilateral ears. Denies any nausea vomiting or diarrhea. Reports 6/10 headache with no blurry vision. Reports that she felt a sensation of near syncope and generalized body tremor with sensation of electricity going through her body. Initial check of her blood pressure at home showed that it was elevated but did not provide any numbers. And her family brought her to the hospital for evaluation. Review of her record shows that she was in the hospital for the same thing at a time was noted to have hypertensive urgency and diagnosed with vertigo was discharged on meclizine which the patient states did show some improvement. At this time in the ED blood pressure was normal. She reports compliance with all her medication unless she was recently started on gabapentin. Past History Past Medical History: hypertension, hyperlipidemia, other (Neuropathy) Past Surgical History: Other (Multiple lumbar and cervical surgeries) Social history: lives with family, full code. denies: smoking, alcohol abuse (Prior history of alcohol and tobacco quit in ) Family history: no significant family history Medications and Allergies Allergies Allergy/AdvReac Type Severity Reaction Status Date / Time codeine AdvReac Shortness Verified 01/02/19 23:31 of Breath Home Medications Medication Instructions Recorded Confirmed Last Taken Type Aspirin 325 mg PO QDAY 30 Days #30 tablet 01/03/19 Unknown Rx Loratadine 10 mg PO DAILY 01/03/19 01/03/19 01/02/19 History Meclizine [Antivert] 25 mg PO Q8H PRN tablet 01/03/19 Unknown Rx Metoprolol Xl [Metoprolol 50 mg PO QDAY 30 Days #30 tablet 01/03/19 Unknown Rx SUCCINATE ER TAB] Montelukast [Singulair] 10 mg PO QPM 01/03/19 01/03/19 01/02/19 History hydroCHLOROthiazide [HCTZ] 12.5 mg PO QDAY 01/03/19 01/03/19 01/02/19 History Active Meds: Active Medications Acetaminophen (Tylenol) 650 mg PO Q4H PRN PRN Reason: Pain MILD(1-3)/Fever >100.5/GONZALEZ Famotidine (Pepcid) 10 mg PO BID [facility] Hydrochlorothiazide (Hctz) 12.5 mg PO QDAY [facility] Sodium Chloride (Nacl 0.9% 1000 Ml) 1,000 mls @ 75 mls/hr IV DIRECT [facility] Loratadine (Claritin) 10 mg PO DAILY [facility] Meclizine HCl (Antivert) 25 mg PO Q8H [facility] Metoprolol Succinate (Metoprolol Xl) 50 mg PO QDAY [facility] Montelukast Sodium (Singulair) 10 mg PO QPM [facility] Ondansetron HCl (Zofran) 4 mg IV Q8H PRN PRN Reason: Nausea And Vomiting Oxycodone/Acetaminophen (Percocet 5/325) 1 tab PO Q6H PRN PRN Reason: Pain, Moderate (4-6) Sodium Chloride (Sodium Chloride Flush Syringe 10 Ml) 10 ml IV BID [facility] Sodium Chloride (Sodium Chloride Flush Syringe 10 Ml) 10 ml IV PRN PRN PRN Reason: LINE FLUSH Review of Systems All systems: negative Constitutional: weakness, lethargy, no weight gain, no fever, no chills, no fatigue, no malaise, no chronic headaches, no poor appetite, no daytime sleepiness, no chronic pain Ears, nose, mouth and throat: tinnitis, headache, no decreased hearing, no nose pain, no nasal congestion, no sinus pressure, no sinus pain, no bleeding gums, no hoarseness, no sore throat, no post-nasal drip, no vertigo Cardiovascular: lightheadedness, no chest pain, no orthopnea, no palpitations, no rapid/irregular heart beat, no edema, no syncope Respiratory: no cough, no cough with sputum, no hemoptysis, no shortness of breath, no congestion, no pleurisy, no pain, no respiratory infections Gastrointestinal: no vomiting, no constipation, no hematemesis, no hematochezia, no early satiety, no heartburn Musculoskeletal: no neck pain, no shooting arm pain, no arm numbness/tingling, no low back pain, no shooting leg pain, no leg numbness/tingling, no redness of joints, no hot joints, no muscle weakness, no muscle cramps, no myalgias, no atrophy, no limitation of motion, no fractures, no loss of height, no prior amputations Integumentary: no rash, no redness, no sores, no jaundice, no depigmentation Neurological: headaches, sensory deficit, burning pain, no paralysis, no weakness, no parathesias, no numbness, no tingling, no seizures, no syncope, no tremors, no lack of coordination, no migraines, no convulsions, no change in speech, no change in mentation, no confusion, no changes in smell/taste, no spasticity Psychiatric: no memory loss, no insomnia, no change in appetite, no disorientation Endocrine: no heat intolerance, no excessive thirst, no nocturia, no excessive sweating, no proptosis, no palpatations, no low blood sugars Hematologic/Lymphatic: no easy bruising, no easy bleeding Allergic/Immunologic: no allergic rhinitis Exam - Constitutional Vitals: Temp Pulse Resp BP Pulse Ox 98.6 F 76 12 128/78 98 07/19/19 07:12 07/19/19 07:12 07/19/19 07:12 07/19/19 07:12 07/19/19 07:12 General appearance: Present: no acute distress, well-nourished - EENT Eyes: Present: PERRL, EOM intact ENT: hearing intact, clear oral mucosa - Neck Neck: Present: supple, normal ROM - Respiratory Respiratory effort: normal Respiratory: bilateral: CTA - Cardiovascular Rhythm: regular Heart Sounds: Present: S1 & S2. Absent: systolic murmur, diastolic murmur - Extremities Extremities: no ischemia, pulses intact, pulses symmetrical, No edema, normal temperature, normal color, Full ROM Peripheral Pulses: within normal limits - Abdominal General gastrointestinal: Present: soft, non-tender, non-distended, normal bowel sounds - Integumentary Integumentary: Present: clear, warm, dry - Musculoskeletal Musculoskeletal: strength equal bilaterally - Psychiatric Psychiatric: appropriate mood/affect, intact judgment & insight - Neurologic Neurologic: CNII-XII intact, moves all extremities, other (Generalized weakness) - Allied Health Allied health notes reviewed: nursing Results - Labs CBC & Chem 7: 07/19/19 07:03 07/19/19 07:03 Labs: Laboratory Last Values WBC 4.2 K/mm3 (4.5-11.0) L 07/19/19 07:03 RBC 3.71 M/mm3 (3.65-5.03) 07/19/19 07:03 Hgb 10.9 gm/dl (10.1-14.3) 07/19/19 07:03 Hct 32.8 % (30.3-42.9) 07/19/19 07:03 MCV 89 fl (79-97) 07/19/19 07:03 MCH 29 pg (28-32) 07/19/19 07:03 MCHC 33 % (30-34) 07/19/19 07:03 RDW 13.8 % (13.2-15.2) 07/19/19 07:03 Plt Count 258 K/mm3 (140-440) 07/19/19 07:03 Lymph % (Auto) 37.6 % (13.4-35.0) H 07/19/19 07:03 [place] % (Auto) 7.0 % (0.0-7.3) 07/19/19 07:03 Eos % (Auto) 3.8 % (0.0-4.3) 07/19/19 07:03 Baso % (Auto) 1.2 % (0.0-1.8) 07/19/19 07:03 Lymph # 1.6 K/mm3 (1.2-5.4) 07/19/19 07:03 [place] # 0.3 K/mm3 (0.0-0.8) 07/19/19 07:03 Eos # 0.2 K/mm3 (0.0-0.4) 07/19/19 07:03 Baso # 0.1 K/mm3 (0.0-0.1) 07/19/19 07:03 Seg Neutrophils % 50.4 % (40.0-70.0) 07/19/19 07:03 Seg Neutrophils # 2.1 K/mm3 (1.8-7.7) 07/19/19 07:03 D-Dimer < 135.00 ng/mlDDU (0-234) 07/19/19 07:03 Sodium 142 mmol/L (137-145) 07/19/19 07:03 Potassium 3.7 mmol/L (3.6-5.0) 07/19/19 07:03 Chloride 105.6 mmol/L (98-107) 07/19/19 07:03 Carbon Dioxide 22 mmol/L (22-30) 07/19/19 07:03 Anion Gap 18 mmol/L 07/19/19 07:03 BUN 12 mg/dL (7-17) 07/19/19 07:03 Creatinine 0.7 mg/dL (0.7-1.2) 07/19/19 07:03 Estimated GFR > 60 ml/min 07/19/19 07:03 BUN/Creatinine Ratio 17 % 07/19/19 07:03 Glucose 109 mg/dL (65-100) H 07/19/19 07:03 Calcium 9.0 mg/dL (8.4-10.2) 07/19/19 07:03 Total Bilirubin < 0.20 mg/dL (0.1-1.2) 07/19/19 07:03 AST 25 units/L (5-40) 07/19/19 07:03 ALT 18 units/L (7-56) 07/19/19 07:03 Alkaline Phosphatase 79 units/L (35-129) 07/19/19 07:03 Total Creatine Kinase 84 units/L (30-135) 07/19/19 07:03 CK-MB (CK-2) 1.5 ng/mL (0.0-4.0) 07/19/19 07:03 CK-MB (CK-2) Rel Index 1.7 (0-4) 07/19/19 07:03 Troponin T < 0.010 ng/mL (0.00-0.029) 07/19/19 07:03 Total Protein 7.2 g/dL (6.3-8.2) 07/19/19 07:03 Albumin 4.1 g/dL (3.9-5) 07/19/19 07:03 Albumin/Globulin Ratio 1.3 % 07/19/19 07:03 Assessment and Plan Assessment and plan: Patient is a 63 year old female with known history of hypertension and arth irtis, recurrence of vertigo, recent diagnosis of neuropathy started on gabapentin recently presents to the ED with complaint of headache with the external ring and to bilateral ears. Denies any nausea vomiting or diarrhea. Reports 6/10 headache with no blurry vision. Reports that she felt a sensation of near syncope and generalized body tremor with sensation of electricity going through her body. Initial check of her blood pressure at home showed that it was elevated but did not provide any numbers. And her family brought her to the hospital for evaluation. Review of her record shows that she was in the hospital for the same thing at a time was noted to have hypertensive urgency and diagnosed with vertigo was discharged on meclizine which the patient states did show some improvement. At this time in the ED blood pressure was normal. She reports compliance with all her medication unless she was recently started on gabapentin. Imaging studies done during the last admission MRI brain: Unremarkable non-enhanced MRI of the brain Bilateral carotid Doppler unrevealing for evidence of any hemodynamically significant stenosis Diagnosis Near syncope Vertigo Headache HTN Generalized Tremor Neuropathy- Ongoing work up outpatient Remote Hx of Tobacco and ETOH use. Quit both in Plan Place in Med surg in Observation Gentle hydration Start on Meclizine per patient this was helpful in December Check TSH, FOLATE, B12 Neurology eval Follow CT head Check orthostatic vital DVT/GI prophy Anticipate discharge in AM Advance Directives: Yes Plan of care discussed with patient/family: Yes
[2019-07-19] MEDS ORDERED: ACETAMINOPHEN 325 MG TAB PO PRN (09:00)
[2019-07-19] MEDS ORDERED: oxyCODONE /ACETAMINOPHEN 5-325MG TAB PO PRN (09:00)
[2019-07-19] MEDS ORDERED: ONDANSETRON 4 MG/2 ML INJ IV PRN (09:00)
[2019-07-19] MEDS ORDERED: SODIUM CHLORIDE 0.9% 1000 ML 1,000 ML IV SCH (09:00)
[2019-07-19] MEDS ORDERED: hydroCHLOROthiazide 12.5 MG CAP PO SCH (10:00)
--- NOTE | 2019-07-19 10:06 | Cat Scan Report ---
CT HEAD WITHOUT CONTRAST INDICATION : Headache and near syncope. TECHNIQUE: Axial imaging performed from the skull apex through the skull base without the use of con trast. All CT scans at this location are performed using CT dose reduction for ALARA by means of aut omated exposure control. COMPARISON: None FINDINGS: Parenchyma: No abnormal density. No mass or mass effect. No hemorrhage. Ventricles: Ventricles are normal in size and appear symmetric. Soft tissues: Soft tissues including the orbits appear normal. Bones: No acute osseous abnormality. Sinuses: Sinuses and mastoid air cells are clear. IMPRESSION: Normal head CT. Signer Name: Hugh Willett MD Signed: 07/19/2019 10:01 AM Workstation Name: [id number]
[2019-07-19] MEDS ORDERED: MECLIZINE 25 MG TAB ONE (10:42)
[2019-07-19] MEDS ORDERED: hydroCHLOROthiazide 12.5 MG CAP ONE (10:43)
[2019-07-19] MEDS: MECLIZINE 25 MG TAB PO SCH ×2 (10:45→17:53)
[2019-07-19] MEDS: FAMOTIDINE 10 MG TAB PO SCH ×2 (10:45→22:05)
[2019-07-19] MEDS: METOPROLOL SUCCINATE XL 50 MG TAB PO SCH (13:21)
[2019-07-19] MEDS: LORATADINE (NF) 10 MG TAB PO SCH (13:26)
[2019-07-19] MEDS ORDERED: MONTELUKAST 10 MG TAB PO SCH (18:00)
[2019-07-20] MEDS: MECLIZINE 25 MG TAB PO SCH ×2 (00:53→10:06)
[2019-07-20 08:40] LABS: Basophils # (Auto) 0.1 K/mm3 (0.0-0.1); Basophils % (Auto) 1.3 % (0.0-1.8); Eosinophils # (Auto) 0.2 K/mm3 (0.0-0.4); Eosinophils % (Auto) 5.2 % (0.0-4.3); Hematocrit 35.6 % (30.3-42.9); Hemoglobin 11.7 gm/dl (10.1-14.3); Lymphocytes # (Auto) 2.2 K/mm3 (1.2-5.4); Lymphocytes % (Auto) 50.7 % (13.4-35.0); Mean Corpuscular HGB Conc 33 % (30-34); Mean Corpuscular Volume 89 fl (79-97); Monocytes # (Auto) 0.3 K/mm3 (0.0-0.8); Monocytes % (Auto) 6.9 % (0.0-7.3); Platelet Count 270 K/mm3 (140-440); Red Cell Distribution Width 13.9 % (13.2-15.2)
[2019-07-20 08:53] LABS: BUN/Creatinine Ratio 17; Blood Urea Nitrogen 12 mg/dL (7-17); Calcium 9.4 mg/dL (8.4-10.2); Hemolysis Index 13
[2019-07-20] MEDS: METOPROLOL SUCCINATE XL 50 MG TAB PO SCH (10:00)
[2019-07-20] MEDS: FAMOTIDINE 10 MG TAB PO SCH (10:02)
[2019-07-20] MEDS: LORATADINE (NF) 10 MG TAB PO SCH (10:02)
--- NOTE | 2019-07-20 11:10 | Discharge Summary ---
Providers - Providers Date of Admission: 07/19/19 08:30 Attending physician: KAREL GAY MD 07/19/19 08:35 Consult to Physician [CONS] Routine Comment: Consulting Provider: LUL FAIRCHILD Physician Instructions: Reason For Exam: generalized tremor and headache 07/19/19 08:41 Occupational Therapy Evaluate and Treat [CONS] Routine Comment: Reason For Exam: vertigo Primary care physician: STRAIGHTENER Hospitalization Reason for admission: SYNCOPE Condition: Stable Hospital course: Patient is a 63 year old female with known history of hypertension and arthirtis, recurrence of vertigo, recent diagnosis of neuropathy started on gabapentin recently presents to the ED with complaint of headache with the external ring and to bilateral ears. Denies any nausea vomiting or diarrhea. Reports 6/10 headache with no blurry vision. Reports that she felt a sensation of near syncope and generalized body tremor with sensation of electricity going through her body. Initial check of her blood pressure at home showed that it was elevated but did not provide any numbers. And her family brought her to the hospital for evaluation. Review of her record shows that she was in the hospital for the same thing at a time was noted to have hypertensive urgency and diagnosed with vertigo was discharged on meclizine which the patient states did show some improvement. At this time in the ED blood pressure was normal. She reports compliance with all her medication unless she was recently started on gabapentin. Imaging studies done during the last admission MRI brain: Unremarkable non-enhanced MRI of the brain Bilateral carotid Doppler unrevealing for evidence of any hemodynamically significant stenosis Patient had some of his BP meds held, his symptom improved and he was discharged with changes to medication and also recommendation outpatient PT follow. Diagnosis Near syncope Vertigo Headache HTN Generalized Tremor Neuropathy- Ongoing work up outpatient Remote Hx of Tobacco and ETOH use. Quit both in Disposition: DC-01 TO HOME OR SELFCARE Time spent for discharge: 35 MINS Core Measure Documentation - Palliative Care Palliative Care/ Comfort Measures: Not Applicable - Core Measures Any of the following diagnoses?: none Exam - Physical Exam Narrative exam: General appearance: Present: no acute distress, well-nourished - EENT Eyes: Present: PERRL, EOM intact ENT: hearing intact, clear oral mucosa - Neck Neck: Present: supple, normal ROM - Respiratory Respiratory effort: normal Respiratory: bilateral: CTA - Cardiovascular Rhythm: regular Heart Sounds: Present: S1 & S2. Absent: systolic murmur, diastolic murmur - Extremities Extremities: no ischemia, pulses intact, pulses symmetrical, No edema, normal temperature, normal color, Full ROM Peripheral Pulses: within normal limits - Abdominal General gastrointestinal: Present: soft, non-tender, non-distended, normal bowel sounds - Integumentary Integumentary: Present: clear, warm, dry - Musculoskeletal Musculoskeletal: strength equal bilaterally - Psychiatric Psychiatric: appropriate mood/affect, intact judgment & insight - Neurologic Neurologic: CNII-XII intact, moves all extremities, other (Generalized weakness) - Allied Health Allied health notes reviewed: nursing - Constitutional Vitals: Temp Pulse Resp BP Pulse Ox 98.2 F 63 16 98/57 98 07/20/19 05:56 07/20/19 05:56 07/20/19 05:56 07/20/19 05:56 07/20/19 05:56 Plan Diet: low fat Special Instructions: record daily BP diary Follow up with: PRIMARY CARE, [Primary Care Provider] - 7 Days Prescriptions: Meclizine [Antivert] 25 mg PO Q8H #30 tablet
[2019-07-20 12:54] VITALS: BP 107/70
== END 2019-07-20 16:47 | disposition home or self-care (01) ==
LOC: ED 06:29 → 3A 08:30
PROVIDERS: ADMIT Internal Medicine; ATTEND Internal Medicine
DX: R55 Syncope and collapse (principal); R07.9 Chest pain, unspecified; R42 Dizziness and giddiness; R51 Headache; I10 Essential (primary) hypertension; R25.1 Tremor, unspecified; E78.5 Hyperlipidemia, unspecified; G62.9 Polyneuropathy, unspecified; M19.90 Unspecified osteoarthritis, unspecified site
CPT/HCPCS: 36415; 70450; 71045; 80048; 80053; 82550; 82553; 82607; 82747; 84443; 84484; 85025; 85379; 93005; 93010; 96360; 96361; 99284; G0378; J7030